=== PATIENT | female | born 1995 | race Two or more races ===

== ENCOUNTER 2025-01-01 10:34 | Outpatient (CLI) | payer OTHER | END 2025-01-01 10:40 | disposition home or self-care (01) | LOC: PRENATAL 10:34 | DX: O36.80X0 Pregnancy with inconclusive fetal viability, not applicable or unspecified (principal); O24.319 Unspecified pre-existing diabetes mellitus in pregnancy, unspecified trimester; O26.859 Spotting complicating pregnancy, unspecified trimester; Z3A.09 9 weeks gestation of pregnancy ==

== ENCOUNTER → 2025-02-01 09:42 | Outpatient (CLI) | payer OTHER | END | disposition home or self-care (01) | LOC: PRENATAL 09:42 | PROVIDERS: ATTEND Obstetrics & Gynecology Maternal & Fetal Medicine | DX: O36.80X0 Pregnancy with inconclusive fetal viability, not applicable or unspecified (principal); Z36.82 Encounter for antenatal screening for nuchal translucency; Z14.8 Genetic carrier of other disease; O24.319 Unspecified pre-existing diabetes mellitus in pregnancy, unspecified trimester; Z3A.14 14 weeks gestation of pregnancy ==

== ENCOUNTER → 2025-02-25 13:54 | Outpatient (CLI) | payer OTHER | END | disposition home or self-care (01) | LOC: PRENATAL 13:54 | PROVIDERS: ATTEND Obstetrics & Gynecology Maternal & Fetal Medicine | DX: O26.849 Uterine size-date discrepancy, unspecified trimester (principal); O44.00 Complete placenta previa NOS or without hemorrhage, unspecified trimester; O24.319 Unspecified pre-existing diabetes mellitus in pregnancy, unspecified trimester; Z3A.17 17 weeks gestation of pregnancy ==